=== PATIENT | male | born 1985 | race Caucasian/White ===

== ENCOUNTER → 2017-06-22 | Outpatient (CLI) | payer OTHER ==
[~2017-06-22] MED LIST: ALBUAER2 INH; CLON1TAB3 PO; EFFSR150 PO; EFFSR75 PO; MOOD STABILIZER; TRAZ100T29 PO
--- NOTE | 2017-06-22 16:53 | DIAGNOSTIC IMAGING REPORT ---
LUMBAR SPINE 2 OR 3 VIEWS CLINICAL HISTORY: LOW BACK PAIN COMPARISON STUDY: No previous studies for comparison. FINDINGS: There are 5 lumbar type vertebral bodies. No fractures or subluxations are visualized. No destructive lesions are evident. There are degenerative changes present at the thoracolumbar junction. There is no pathologic bowel dilatation. IMPRESSION: 1. Mild degenerative changes, most pronounced at the thoracolumbar junction 2. No fractures or subluxations identified Electronically signed by: Ketan Evans M.D. 06/22/2017 4:52 PM Dictated Date/Time: 06/22/2017 4:51 PM
== END | disposition home or self-care (01) ==
LOC: C.RAD 16:33
PROVIDERS: ATTEND Physician Assistant
DX: M54.5 Low back pain (principal)